=== PATIENT | female | born 1985 | race Hispanic/Latino ===

== ENCOUNTER 2022-05-06 16:50 | Inpatient (IN) | payer OTHER ==
--- OUTSIDE RECORDS SUMMARY | 2022-05-06 16:55 | XMS REPORT | Continuity of Care Document ---
:1985 Author Organization [facility] t Address [address] [place] [address] Dr. Mcconnell. [address] [place] [address] Care Team Providers Name Role Phone Beth Arce Primary Care Physician Doctor Unassigned, [place] Attending Clinician Unavailable RON BARKSDALE Attending Clinician Unavailable Krystina Urias Attending Clinician [phone] KRYSTINA LEYVA Attending Clinician Unavailable Payers Payer Name Policy Type Policy Number Effective Date Expiration Date S ource Problems Condition Condition Condition Status Onset Resolution Last Treating Co mments Source Name Details Category Date Date Treatment Clinician Date Contracept Contracept Disease Active U nivers amy amy 5-26 [place]y [place] [address] [place] [address] Over Over Disease Active Univers weight weight 5-26 ity of 00:00: [address] Allergies, Adverse Reactions, Alerts Allergy Allergy Status Severity Reaction(s) Onset Inactive Treating Comm ents Source Name Type Date Date Clinician NO KNOWN Drug Active Univers ALLERGIE Class ity of S [facility] Social History Social Habit Start Date Stop Date Quantity Comments Source Exposure to Not sure [facility] SARS-CoV-2 [facility] (event) [place] Alcohol intake 2020-03-26 2020-03-26 0 /d University of 00:00:00 00:00:00 [facility] Tobacco use and 2020-03-19 2020-03-19 Smokeless tobacco Un iversity of exposure 00:00:00 00:00:00 non-user [facility] Sex Ass[birth year] Universit y of 00:00:00 00:00:00 [facility] Smoking Status Start Date Stop Date Source Never smoked tobacco [facility] Medications Ordered Filled Start Stop Current Ordering Indication Dosage Frequency Signature Comments Components Source Medication Medication Date Date Medication? Clinician (SIG) Name Name medroxyPROG 2019-2020- No [id number] 150mg Univers ESTERone 03-26 ity of (DEPO-PROVE 20:00: 19:59 [place] RA) 00 :00 Medical injection Branch 150 mg medroxyPROG 2020-0 2020- No [id number] 150mg 150 mg, Univers ESTERone 03-26 Intramuscu ity of (DEPO-PROVE 20:00: 19:59 lar, [place] RA) 00 :00 [id number], Medical injection 4 doses, Branch 150 mg First dose on Tue03/26/20 at 1500, Last dose on Tue12/03/20 at 1500, Routine medroxyPROG 2020-0 2020- No [id number] 150mg Univers ESTERone 03-26 ity of (DEPO-PROVE 20:00: 19:59 [place] RA) 00 :00 Medical injection Branch 150 mg medroxyPROG 2020-0 2020- No [id number] 150mg 150 mg, Univers ESTERone 03-26 Intramuscu ity of (DEPO-PROVE 20:00: 19:59 lar, [place] RA) 00 :00 [id number], Medical injection 4 doses, Branch 150 mg First dose on Tue03/26/20 at 1500, Last dose on Tue12/03/20 at 1500, Routine norethindro Yes [id number] 1{tbl} Take 1 Univers ne-e.estrad 6-11 tablet by ity of iol-iron 00:00: mouth [place] (MICROGESTI 00 daily. Medica l N FE) 1.5 Branch mg-30 mcg (21)/75 mg (7) per tablet norethindro Yes [id number] 1{tbl} Take 1 Univers ne-e.estrad 6-11 tablet by ity of iol-iron 00:00: mouth [place] (MICROGESTI 00 daily. Medica l N FE) 1.5 Branch mg-30 mcg (21)/75 mg (7) per tablet norethindro Yes [id number] 1{tbl} Take 1 Univers ne-e.estrad 6-11 tablet by ity of iol-iron 00:00: mouth [place] (MICROGESTI 00 daily. Medica l N FE) 1.5 Branch mg-30 mcg (21)/75 mg (7) per tablet norethindro Yes [id number] 1{tbl} Take 1 Univers ne-e.estrad 6-11 tablet by ity of iol-iron 00:00: mouth [place] (MICROGESTI 00 daily. Medica l N FE) 1.5 Branch mg-30 mcg (21)/75 mg (7) per tablet norethindro Yes [id number] 1{tbl} Take 1 Univers ne-e.estrad 6-11 tablet by ity of iol-iron 00:00: mouth [place] (MICROGESTI 00 daily. Medica l N FE) 1.5 Branch mg-30 mcg (21)/75 mg (7) per tablet norethindro Yes [id number] 1{tbl} Take 1 Univers ne-e.estrad 6-11 tablet by ity of iol-iron 00:00: mouth [place] (MICROGESTI 00 daily. Medica l N FE) 1.5 Branch mg-30 mcg (21)/75 mg (7) per tablet norethindro Yes [id number] 1{tbl} Take 1 Univers ne-e.estrad 6-11 tablet by ity of iol-iron 00:00: mouth [place] (MICROGESTI 00 daily. Medica l N FE) 1.5 Branch mg-30 mcg (21)/75 mg (7) per tablet norethindro Yes [id number] 1{tbl} Take 1 Univers ne-e.estrad 6-11 tablet by ity of iol-iron 00:00: mouth [place] (MICROGESTI 00 daily. Medica l N FE) 1.5 Branch mg-30 mcg (21)/75 mg (7) per tablet norethindro Yes [id number] 1{tbl} Take 1 Univers ne-e.estrad 6-11 tablet by ity of iol-iron 00:00: mouth [place] (MICROGESTI 00 daily. Medica l N FE) 1.5 [place] mg-30 mcg (21)/75 mg (7) per tablet Immunizations Ordered Filled Immunization Date Status Comments [facility] e Immunization Name Name Varicella 2015-11-23 Completed University of (varivax)(chicken 00:00:00 [place] M edical pox) Branch Varicella 2015-11-23 Completed University of (varivax)(chicken 00:00:00 [place] [facility] pox) Branch Varicella 2015-11-23 Completed University of (varivax)(chicken 00:00:00 [place] [facility] pox) Branch Varicella 2015-11-23 Completed University of (varivax)(chicken 00:00:00 [place] [facility] pox) Branch Varicella 2015-11-23 Completed University of (varivax)(chicken 00:00:00 [place] [facility] pox) Branch Varicella 2015-11-23 Completed University of (varivax)(chicken 00:00:00 [place] [facility] pox) Branch Varicella 2015-11-23 Completed University of (varivax)(chicken 00:00:00 [place] [facility] pox) Branch Varicella 2015-11-23 Completed University of (varivax)(chicken 00:00:00 [place] [facility] pox) Branch Varicella 2015-11-23 Completed University of (varivax)(chicken 00:00:00 [place] M edical pox) Branch TDAP 2015-09-03 Completed University of 00:00:00 [facility] TDAP 2015-09-03 Completed University of 00:00:00 [facility] TDAP 2015-09-03 Completed University of 00:00:00 [facility] TDAP 2015-09-03 Completed University of 00:00:00 [facility] TDAP 2015-09-03 Completed University of 00:00:00 [facility] TDAP 2015-09-03 Completed University of 00:00:00 [facility] TDAP 2015-09-03 Completed University of 00:00:00 [facility] TDAP 2015-09-03 Completed University of 00:00:00 [facility] TDAP 2015-09-03 Completed University of 00:00:00 [facility] Influenza Virus 2015-06-09 Completed Universit y of Vaccine Quad IM 3+ 00:00:00 [facility] Influenza Virus 2015-06-09 Completed Universit y of Vaccine Quad IM 3+ 00:00:00 [facility] Influenza Virus 2015-06-09 Completed Universit y of Vaccine Quad IM 3+ 00:00:00 [facility] Influenza Virus 2015-06-09 Completed Universit y of Vaccine Quad IM 3+ 00:00:00 [facility] Influenza Virus 2015-06-09 Completed Universit y of Vaccine Quad IM 3+ 00:00:00 [facility] Influenza Virus 2015-06-09 Completed Universit y of Vaccine Quad IM 3+ 00:00:00 [facility] Influenza Virus 2015-06-09 Completed Universit y of Vaccine Quad IM 3+ 00:00:00 [facility] Influenza Virus 2015-06-09 Completed Universit y of Vaccine Quad IM 3+ 00:00:00 [facility] Influenza Virus 2015-06-09 Completed Universit y of Vaccine Quad IM 3+ 00:00:00 [facility] Influenza Virus 2011-05-13 Completed Universit y of Vaccine 00:00:00 [facility] Influenza Virus 2011-05-13 Completed Universit y of Vaccine 00:00:00 [facility] Influenza Virus 2011-05-13 Completed Universit y of Vaccine 00:00:00 [facility] Influenza Virus 2011-05-13 Completed Universit y of Vaccine 00:00:00 [facility] Influenza Virus 2011-05-13 Completed Universit y of Vaccine 00:00:00 [facility] Influenza Virus 2011-05-13 Completed Universit y of Vaccine 00:00:00 [facility] Influenza Virus 2011-05-13 Completed Universit y of Vaccine 00:00:00 [facility] Influenza Virus 2011-05-13 Completed Universit y of Vaccine 00:00:00 [facility] Influenza Virus 2011-05-13 Completed Universit y of Vaccine 00:00:00 [facility] Td 2010-10-22 Completed University of 00:00:00 [facility] Rubella 2010-10-22 Completed University of 00:00:00 [facility] Td 2010-10-22 Completed University of 00:00:00 [facility] Rubella 2010-10-22 Completed University of 00:00:00 [facility] Td 2010-10-22 Completed University of 00:00:00 [facility] Rubella 2010-10-22 Completed University of 00:00:00 [facility] Td 2010-10-22 Completed University of 00:00:00 [facility] Rubella 2010-10-22 Completed University of 00:00:00 [place] [facility] Td 2010-10-22 Completed University of 00:00:00 [place] [facility] Rubella 2010-10-22 Completed University of 00:00:00 [place] [facility] Td 2010-10-22 Completed University of 00:00:00 [place] [facility] Rubella 2010-10-22 Completed University of 00:00:00 [place] [facility] Td 2010-10-22 Completed University of 00:00:00 [place] [facility] Rubella 2010-10-22 Completed University of 00:00:00 [place] [facility] Td 2010-10-22 Completed University of 00:00:00 [place] [facility] Rubella 2010-10-22 Completed University of 00:00:00 [place] [facility] Td 2010-10-22 Completed University of 00:00:00 [place] [facility] Rubella 2010-10-22 Completed University of 00:00:00 [facility] Branch Vital Signs Vital Name Observation Time Observation Value Comments Source Heart rate 2020-03-26 19:43:00 74 /min Universi ty [facility] Body temperature 2020-03-26 19:43:00 37.17 [facility] 2020-03-26 19:43:00 16 /min [facility] Body height 2020-03-26 19:43:00 154.9 cm [facility] Body weight 2020-03-26 19:43:00 70.308 kg [facility] BMI 2020-03-26 19:43:00 29.29 kg/m2 [facility] Systolic blood 2020-03-26 19:43:00 103 mm[Hg] Univer sity of pressure [facility] Diastolic blood 2020-03-26 19:43:00 62 mm[Hg] Unive rsity of pressure [facility] Systolic blood 2020-03-19 19:19:00 95 mm[Hg] Univer sity of pressure [facility] Branch Diastolic blood 2020-03-19 19:19:00 64 mm[Hg] Unive rsity of pressure [facility] Heart rate 2020-03-19 19:19:00 62 /min Universi ty [facility] Body temperature 2020-03-19 19:19:00 36.89 Edith Univ ersity [facility] Respiratory rate 2020-03-19 19:19:00 16 /min [facility] Body height 2020-03-19 19:19:00 154.9 cm [facility] Body weight 2020-03-19 19:19:00 68.947 kg [facility] BMI 2020-03-19 19:19:00 28.72 kg/m2 [facility] Procedures Procedure Date / Time Performing Clinician Source Performed AUTHORIZATION FOR 2022-04-13 05:01:00 Doctor Unassigned, No [facility] OF [facility] POCT TEST 2020-03-26 19:45:00 Krystina Leyva [facility] POCT TEST 2020-03-19 19:21:00 Krystina Leyva [facility] ASSIGNMENT OF BENEFITS 2020-03-19 18:49:08 Doctor Unassigned, No [facility] Encounters Start End Encounter Admission Attending Care Care Encounter Source Date/Time Date/Time Type Type Clinicians Facility Department ID 2022-04-13 2022-04-13 Orders Doctor DOUGLASS [id number] Univers 00:00:00 00:00:00 Only Unassigned, ANDRES [id number] it [id number] Mac as [phone] [address] 2021-01-09 2021-01-09 Outpatient [facility] [id number] Univers 13:00:00 13:00:00 [id number] ity [facility] 2020-11-14 2020-11-14 Outpatient R SHAMIR [facility] [id number] Univers 10:00:00 10:00:00 RON bassetty o f [facility] 2020-11-14 2020-11-14 Outpatient R [facility] [id number] Univers 09:30:00 09:30:00 [id number] ity [facility] 2020-11-14 2020-11-14 Outpatient R [facility] [id number] Univers 09:30:00 09:30:00 ity [facility] 2020-06-18 2020-06-18 Outpatient R [facility] [id number] Univers 13:30:00 13:30:00 ity of [facility] 2020-06-18 2020-06-18 Outpatient R [facility] [id number] Univers 13:30:00 13:30:00 ity of [facility] 2020-03-26 2020-03-26 Office [place], [facility] [id number] Univers 14:36:33 15:08:36 Visit Krystina C JUNIOR PROJECT MANAGER [id number] ity of [facility] [id number] Mac as MATERNAL [id number] [facility] CHILD [address] [place] [address] 2020-03-26 2020-03-26 Outpatient R AKINSIPE, [facility] [id number] Univers 14:30:00 14:30:00 KRYSTINA [id number] ity o [facility] 2020-03-26 2020-03-26 Outpatient R AKINSIPE, [facility] [id number] Univers 14:30:00 14:30:00 KRYSTINA ity o [facility] 2020-03-26 2020-03-26 Outpatient R AKINSIPE, [facility] [id number] Univers 14:30:00 14:30:00 KRYSTINA bassetty o [facility] 2020-03-20 2020-03-[address] [facility] [id number] Univers 00:00:00 00:00:00 Krystina C JUNIOR PROJECT MANAGER [id number] ity of [facility] [id number] Mac as MATERNAL [id number] [facility] & [address] 2020-03-19 2020-03-19 Office [place], [facility] [id number] Univers 13:57:40 14:50:26 Visit Krystina C JUNIOR PROJECT MANAGER [id number] ity of REGIONAL [id number] Mac as MATERNAL [id number] [facility] & [address] 2020-03-19 2020-03-19 Outpatient R AKINS[place], [facility] [id number] Univers 13:30:00 13:30:00 KRYSTINA ity o [facility] 2020-03-19 2020-03-19 Outpatient R [facility] [id number] Univers 13:30:00 13:30:00 [id number] ity of [facility] 2020-03-19 2020-03-19 Orders Doctor EVONNE [id number] Univers 00:00:00 00:00:00 Only Unassigned, ANDRES [id number] ity of [place] [facility] [id number] Mac as [id number] [address] 2020-03-11 2020-03-11 Outpatient R [facility] [id number] Univers 13:45:00 13:45:00 [id number] ity of [facility] 2020-03-11 2020-03-11 Outpatient R [facility] [id number] Univers 13:45:00 13:45:00 RON paul o f [facility] Results Test Description Test Time Test Comments Results Result Comments Source POCT TEST 2020-03-26 19:45:00 Test Item Value Reference Range Interpretation Comme nts POCT PREG (test code = 1605) Negative On board controls acceptable with C Line (test code = 3574) Yes POCT PREG LOT # (test code = 3575) POCT PREG TEST DATE (test code = 3576) [id number] 19:45:00 Test Item Value Reference Range Interpretation Comments POCT PREG (test code = 1605) Negative On board controls acceptable with C Yes Line (test code = 3574) POCT PREG LOT # (test code = 3575) POCT PREG TEST DATE (test code = 3576) [facility] [id number] 19:21:00 Test Item Value Reference Range Interpretation Comments POCT PREG (test code = 1605) Negative On board controls acceptable with C Yes Line (test code = 3574) POCT PREG LOT # (test code = 3575) POCT PREG TEST DATE (test code = 3576) [facility] [id number] 19:21:00 Test Item Value Reference Range Interpretation Comments POCT PREG (test code = 1605) Negative On board controls acceptable with C Yes Line (test code = 3574) POCT PREG LOT # (test code = 3575) POCT PREG TEST DATE (test code = 3576) [facility]
[2022-05-06] MEDS ORDERED: Ringers Lactate 1,000 ML IV PRN (17:50)
[2022-05-06] MEDS ORDERED: Ringers Lactate 1,000 ML IV SCH (18:00)
[2022-05-06] MEDS ORDERED: NA CIT/CITRIC AC 30 ML ORAL UDC PO ONE (18:04)
[2022-05-06] MEDS ORDERED: METHYLERGONOVINE 0.2MG/ML AMP IM ONE (18:11)
[2022-05-06] MEDS ORDERED: OXYTOCIN 10 UNIT/ML ML ONE (18:28)
[2022-05-06] MEDS ORDERED: MORPHINE SULFATE/PF 1 MG/ML (10 ML AMP) ONE (18:28)
[2022-05-06] MEDS ORDERED: ONDANSETRON 4 MG/2 ML VIAL ONE (18:29)
[2022-05-06] MEDS ORDERED: LIDOCAINE 1% MPF 5 ML VIAL ONE (18:29)
[2022-05-06 18:31] LABS: Protime INR 0.96
[2022-05-06 18:32] LABS: Absolute Lymphocytes (CBC) 1.7 K/uL (0.7-4.9); Hematocrit 33.8 % (36.0-45.0); Lymphocytes % 13.5 % (15.3-44.8); MPV 9.8 fL (7.6-11.3)
[2022-05-06 18:37] VITALS: BMI 34.5
[2022-05-06 18:51] LABS: SARS-CoV-2 Antigen Rapid Res Negative (Negative)
[2022-05-06] MEDS ORDERED: METOCLOPRAMIDE 10 MG/2mL INJ IV SCH (19:00)
[2022-05-06] MEDS ORDERED: NACL IVPB SCH (19:00)
[2022-05-06] MEDS ORDERED: CEFAZOLIN SODIUM 2 GM in NA CHLORIDE 0.9% 100 ML IVPB SCH (19:00)
[2022-05-06] MEDS ORDERED: CEFAZOLIN IVPB SCH (19:00)
[2022-05-06] MEDS ORDERED: CARBOPROST TROME 250 MCG/ML IM ONE (19:00)
[2022-05-06] MEDS ORDERED: Oxycodone HCl/Acetaminophen 1 TAB TAB PO PRN ×2 (19:44)
[2022-05-06] MEDS ORDERED: ACETAMINOPHEN 500 MG TAB PO PRN ×2 (19:44)
[2022-05-06] MEDS ORDERED: IBUPROFEN 200 MG TAB PO PRN (19:44)
[2022-05-06] MEDS ORDERED: KETOROLAC 30 MG/ML INJ IM PRN (19:44)
[2022-05-06] MEDS ORDERED: ONDANSETRON 4 MG/2 ML VIAL IV PRN (19:44)
[2022-05-06] MEDS ORDERED: BISACODYL 10 MG RECTAL SUPP PR PRN (19:44)
[2022-05-06] MEDS ORDERED: DIPHENHYDRAMINE 25 MG TAB/CAP PO PRN (19:44)
[2022-05-06] MEDS ORDERED: ONDANSETRON 4 MG (ODT) TAB PO PRN (19:44)
[2022-05-06] MEDS ORDERED: D5LR 1,000 ML with OXYTOCIN 20 UNIT IV SCH ×2 (20:00)
[2022-05-06] MEDS ORDERED: OXYTOCIN/LR 20 UNITS/1,000 ML BAG IV SCH (20:00)
[2022-05-06 21:01] VITALS: O2SAT 100
--- NOTE | 2022-05-06 23:52 | PREOPHP ---
Date of Admission: 05/06/2022 History Of Present Illness: A 36-year-old 3, para 2 at 38 weeks 2 days who experienced spont aneous rupture of membranes, clear fluid. Came into Labor and Delivery. Baby looks good. She is ab out 2 cm vertex still -1 station, 50%, jesus alberto early and about every 2-3 minutes at this point. She has had first delivery with a 6-pound baby with severe dystocia and the baby had to be resuscitat ed. Second delivery was a larger baby and even had more severe dystocia and she said the baby was de ad, what she meant was the baby was severely depressed and again had to be resuscitated. We have dis cussed with the patient and on several occasions and again today of her options. She knows s he can try vaginal delivery, but we cannot predict whether or not she will have difficulties or we ca n go with . She and her have opted for . Infection; blood loss; anesthetic complications; injury to bladder, bowel, ureter; postoperative complications; clots in legs; pneumoni a discussed. The patient knows fully well that these do not constitute all the possible problems nicolas t could occur during or following surgery. Family History: Mother with diabetes and hypertension, otherwise not really contributory. Allergies: THE PATIENT HAS NO ALLERGIES. Current Medications: She has been taking vitamins prior to admission. Past Surgical History: She has had no previous surgeries. Physical Examination: HEENT: Clear. Pupils equal, round, and reactive to light and accommodation. Conjunctivae well perf used. No oral, lingual, or buccal lesions. Chest: Lungs clear. Heart: Without murmurs, thrills, heaves, or rubs. Breasts: Without masses on previous visits. Abdomen: Term size. Baby is vertex -1 station. Extremities: Clear without edema, cyanosis, or clubbing. Plan: Patient says she has not eaten a thing all day and has only had liquids. [facility] and proceed with expeditious section secondary to history of severe dystocia on 2 occasions. HASEEB/JAX Voice ID: [id number]
[2022-05-07] MEDS ORDERED: CEFAZOLIN SODIUM 2 GM in NA CHLORIDE 0.9% 100 ML IVPB ONE (04:00)
[2022-05-07] MEDS: KETOROLAC 30 MG/ML INJ IV PRN ×2 (04:45→12:06)
--- NOTE | 2022-05-07 12:07 | PN ---
Postoperatively, is doing well. H and H with expected change. Lochia is normal. She has already am bulated. Full postoperative talk given. We will discontinue her IV, sometime around lunchtime, same with the Farris. If she does well today, will be dismissed sometime tomorrow. Tdap had been discuss ed and offered. Flu shots again discussed and suggested. She can get them at the local pharmacy or come by my office next week for flu shot. She has no questions or problems right now. Seems to be d oing quite well. Is not taking any analgesics other than IV Toradol and is getting her second dose o f antibiotic a little late, at this point, but she is getting them, this morning. A full postop talk , we will go over it again tomorrow. HASEEB/JAX Voice ID: [id number] Report ID: [id number]
[2022-05-07] MEDS ORDERED: FAMOTIDINE 20 MG/2 ML VIAL IV ONE (18:05)
[2022-05-07] MEDS ORDERED: MAGNESIUM HYDROXIDE 8% 30 ML PO PRN (19:44)
[2022-05-07] MEDS: IBUPROFEN 600 MG TAB PO PRN (22:45)
[2022-05-07 23:05] LABS: RPR (Rapid Plasma Reagin) NON-REACT (NON-REACT)
[2022-05-08] MEDS: IBUPROFEN 600 MG TAB PO PRN (06:23)
--- NOTE | 2022-05-08 09:18 | DS ---
Hospital Course: A 36-year-old, 3, para 2, history of severe dystocia with last delivery to the point where the patient said that her daughter was and they revived her. The patient and I have discussed pros and cons of vaginal delivery versus on numerous occasions along with he r . The patient experienced spontaneous rupture of membranes at 38+ weeks, came in early labo r, 1.5 cm, beside at that point she wished to proceed with . Infection; blood loss; anesthet ic complications; injury to bladder, bowel, ureter; postoperative complications; clots in legs; pneum onia discussed. The patient knows fully well this does not constitute all the possible problems that could occur during or following surgery. Underwent primary section, spinal block anesthesi a with delivery of a 6-pound 11-ounce male , Apgars 9 and 9. Estimated blood loss 800 cc. Anc ef used for prophylaxis postoperatively. Afebrile, ambulating, voiding. Lochia is normal. Will be dismissed later this morning to report back to my office next week for staple removal, to report any temperature elevation of 100 degrees or greater, severe pain, heavy bleeding, or any other type of ab normality. The patient is Rh positive, immune to Rubella. Negative COVID, negative strep. Dismisse d with tramadol for analgesia. Tdap and flu shots have been discussed and offered. Incision looks g ood. Lochia is normal. Final Diagnoses: Intrauterine gestation, 38 weeks 2 days, history of severe dystocia with last deliv dominguez and first delivery as well. Primary section, spinal block anesthesia. Tdap and flu shot s offered. GRIFFINC/LAMONTEL Voice ID: [id number] Report ID: [id number]
[2022-05-08] MEDS ORDERED: TDAP (DIPHTH,PERTUSS(ACELL),TET VAC) 0.5 ML VIAL IMVAC ONE (10:13)
[2022-05-08] MEDS ORDERED: KETOROLAC 30 MG/ML INJ IM PRN (10:15)
[2022-05-08 11:17] VITALS: BP 111/62; TEMP 97.7
[2022-05-09 17:49] LABS: HBsAG Nonreactive (Nonreactive)
--- NOTE | 2022-05-10 11:02 | OP ---
Surgeon: Grayson Delgado MD [employer] Buyer: Dr. Faith. Anesthesiologist: Dr. Campa. Indications: A 36-year-old 3, para 2, 2 previous vaginal deliveries that were very difficult . Babies were depressed and had to be resuscitated. The patient requests a . Infection; bl ood loss; anesthetic complications; injury to bladder, bowel, ureter; postoperative complications; cl ots in legs; pneumonia all discussed. Patient knows fully well, these does not constitute all of the possible problems that could occur during or following surgery and knows that any further pregnancie s will possibly be by a . Description Of Procedure: Spinal block anesthesia was performed. Prepping and draping was then perf ormed. Time-out was performed. A low-transverse uterine incision was created. The incision was car ried to the fascia. The fascia was incised and this incision carried transversely bilaterally. Ante rior and posterior fascial planes were developed with both blunt and sharp dissection. Underlying re ctus muscle . Peritoneum entered bluntly. Low transverse bladder flap developed. Low eng[place] sverse uterine incision created. A 6-pound 11-ounce male was delivered without difficulties, Apgars 9 and 9. Cord blood obtained. Placenta removed manually. Uterus cleared externally and cleared of clot and blood and membranes. Cervical os dilated with ring clamp. Uterus closed with a running loc ked stitch of 1 chromic, followed by 2 izgika-df-lzaet stitches in the right angle for complete hemos tasis. Estimated blood loss, 800 cc or less. The patient was noted to have a very small 1 cm fibroi d on the left fundal area of the uterus, otherwise clear. Gutters cleared of clot and blood. Uterus replaced in the peritoneal cavity. Gutters inspected and then incision line inspected, no further b leeding. The rectus muscles were reapproximated using interrupted sutures of 0 Vicryl, two interrupt ed sutures. The fascia was closed with 1 Vicryl running from either angle to the midline. Subcutane ous tissue closed with 2-0 plain. Pall Mall were used for the skin. Patient had been given 2 g of Anc ef for prophylaxis, tolerated all procedures well. Transferred back to her room in good condition. Final Diagnoses: Term intrauterine at 38 weeks and 2 days. Rupture of membranes. Request ed section. History of previous traumatic vaginal deliveries, spinal block anesthesia. HASEEB/MODAnel Voice ID: [id number] Report ID: [id number]
== END 2022-05-08 11:20 | disposition home or self-care (01) | DRG 788 ==
LOC: 2ND-WC 16:50
PROVIDERS: ADMIT Specialist; ATTEND Specialist
PROC: 10D00Z1 Extraction of Products of Conception, Low, Open Approach (ICD-10-PCS; principal; 2022-05-06)
DX: O42.92 Full-term premature rupture of membranes, unspecified as to length of time between rupture and onset of labor (principal); Z3A.38 38 weeks gestation of pregnancy; Z37.0 Single live birth; Z20.822 Contact with and (suspected) exposure to COVID-19
CPT/HCPCS: 36415; 85014; 85025; 85610; 85730; 86592; 86850; 86900; 86901; 87340; 87811; 88307; G0433; J2001; J2210; J2405; J2590; J2765; J7120; J7121